=== PATIENT | female | born 2000 | race Hispanic/Latino ===

== ENCOUNTER → 2024-09-10 | Outpatient (CLI) | payer OTHER ==
--- NOTE | 2024-09-10 15:26 | HMCIMG ---
LUMBAR W OBLIQUES AND FLEX/EXT REASON: Somatic dysfunction Lumbar region COMPARISON: None TECHNIQUE: 7 view lumbar spine exam was performed including obliques and flexion and extension. FINDINGS: There are normal-appearing lumbar vertebral bodies. Interspace heights are preserved. Vertebral body alignment appears normal in the neutral view. Oblique views show no spondylolysis or spondylolisthesis. Flexion and extension views show preservation of normal posterior vertebral body alignment. IMPRESSION: 1. Normal lumbar spine views including flexion and extension and oblique views.
== END | disposition home or self-care (01) ==
LOC: RAH 13:15
PROVIDERS: ATTEND Physical Medicine & Rehabilitation
DX: M99.03 Segmental and somatic dysfunction of lumbar region (principal); M99.05 Segmental and somatic dysfunction of pelvic region
CPT/HCPCS: 72110

== ENCOUNTER → 2024-12-04 | Outpatient (CLI) | payer OTHER ==
--- NOTE | 2024-12-04 15:03 | HMCIMG ---
Exam Type: CT LUMBAR SPINE W/O CONTRAST Clinical Information: Spondylolysis, Segmental and somatic dysfunction of lumbar region Comparison: None Technique: Spiral axial images were performed from T12 to the sacral level. Both sagittal and coronal reconstructions were performed. CT Dose Index (CTDI): 59.14 mGy Dose Length Product (DLP): 1953.1 total Findings: There is normal alignment of the vertebral bodies. There are no fractures. No facet hypertrophy. The prevertebral soft tissues are normal. IMPRESSION: NORMAL LUMBAR SPINE CT.
== END | disposition home or self-care (01) ==
LOC: RAH 13:14
PROVIDERS: ATTEND Physical Medicine & Rehabilitation
DX: M43.06 Spondylolysis, lumbar region (principal); M99.03 Segmental and somatic dysfunction of lumbar region
CPT/HCPCS: 72131

== ENCOUNTER → 2024-12-04 | Outpatient (CLI) | payer OTHER ==
--- NOTE | 2024-12-04 15:06 | HMCIMG ---
Exam Type: SCOLIOSIS 2-3VW Clinical Information: SPONDYLOSIS, LUMBAR REGION, SOMATIC DYSFUNCTION OF LUMBAR REGION , LEG DOROTHY Comparison: None Findings: The thoracic and lumbar spine regions are well visualized in the AP projection. There is levoscoliosis, 1-2 degrees, vertex at L1. All pedicles and spinous processes are intact. No fracture or bony lesions are identified. The disc spaces are normal. The visualized soft tissues are unremarkable. IMPRESSION: Scoliotic curvature as noted. No acute pathology.
== END | disposition home or self-care (01) ==
LOC: RAH 13:34
PROVIDERS: ATTEND Physical Medicine & Rehabilitation
DX: M41.86 Other forms of scoliosis, lumbar region (principal); M43.06 Spondylolysis, lumbar region; M99.03 Segmental and somatic dysfunction of lumbar region; M21.70 Unequal limb length (acquired), unspecified site
CPT/HCPCS: 72082